=== PATIENT | female | born 1990 | race Two or more races ===

== ENCOUNTER 2018-09-20 09:35 | Observation (INO) | payer MEDICAID ==
[2018-09-22] MEDS ORDERED: PREN-96 PO (23:41)
== END 2018-09-20 11:10 | disposition home or self-care (01) | DRG 566 ==
LOC: LDRP 09:35
PROVIDERS: ADMIT Obstetrics & Gynecology; ATTEND Obstetrics & Gynecology
DX: O48.0 Post-term pregnancy (principal); Z3A.40 40 weeks gestation of pregnancy
CPT/HCPCS: 59025; 76818; 81002; G0378

== ENCOUNTER 2018-12-28 08:18 | Emergency (ER) | payer MEDICAID ==
[~2018-12-28] VITALS: Ht 167.6 cm; Wt 81.6 kg
[~2018-12-28 08:18] MED LIST: PREN-96 PO
[2018-12-28 08:41] VITALS: BP 125/84
[2018-12-28] MEDS ORDERED: cefTRIAXone SOD 1,000 MG VL IM ONE (09:00)
== END 2018-12-28 09:19 | disposition home or self-care (01) ==
LOC: ER 08:22
DX: J03.90 Acute tonsillitis, unspecified (principal); H10.33 Unspecified acute conjunctivitis, bilateral
CPT/HCPCS: 96372; 99283; J0696